=== PATIENT | male | born 1950 | race Caucasian/White ===

== ENCOUNTER 2023-06-24 09:03 | Inpatient (IN) ==
[2023-06-24] MEDS ORDERED: Senna TAB 8.6 mg TAB PO PRN (15:08)
[2023-06-24] MEDS ORDERED: Magnesium Hydroxide LIQ 30 ML UDC PO PRN (15:08)
[2023-06-24] MEDS: Heparin 5000 UNITS/ML 1 mL VIAL SUBCUT SCH (22:34)
[2023-06-25] MEDS: Ondansetron ODT 4 mg TAB 4 MG TAB PO PRN (05:44)
[2023-06-25] MEDS: Aspirin EC 81 mg TAB.EC (enteric coated) PO SCH (10:40)
[2023-06-26 07:29] LABS: ABS Basophils 0.1 10^3/uL (0.0-0.1); ABS Eosinophils 0.1 10^3/uL (0.0-0.5); ABS Lymphocytes 2.3 10^3/uL (1.0-4.8); ABS Neutrophils 6.8 10^3/uL (1.5-7.6); ABS Nucleated RBC 0.01 10^3/ul; Eosinophil % 1.3 %; Hematocrit 39.9 % (38-53); Hemoglobin 13.8 g/dL (13.2-16.3); Lymphocyte % 22.4 %; Mean Corpuscular Hemoglobin 30.1 pg (27-33); Mean Corpuscular Hgb Conc 34.5 g/dL (31-36); Mean Corpuscular Volume 87.3 fL (80-97); Mean Platelet Volume 8.7 fL (7.5-11.2); Platelet Count 327 10^3/uL (150-450); Red Blood Count 4.57 10^6/uL (4.06-5.63); Red Cell Distribution Width 13.9 % (12-17); White Blood Count 10.3 10^3/uL (3.6-10.2)
[2023-06-26 08:01] LABS: Albumin 3.8 g/dL (3.2-5.2); Albumin/Globulin Ratio 1.7 (1-3); Calcium 9.1 mg/dL (8.6-10.3); Creatinine, Serum 0.81 mg/dL (0.67-1.17); Globulin 2.2 g/dL (2-4); Potassium 4.8 mmol/L (3.5-5.0); Total Bilirubin 1.1 mg/dL (0.2-1.0); eGFR CKD-EPI 92.5 (>60)
[2023-06-27 05:56] VITALS: BP 161/70
== END 2023-06-27 08:55 | disposition short-term general hospital (02) | DRG 64 ==
LOC: PMRU 11:59
PROVIDERS: ADMIT Physical Medicine & Rehabilitation; ATTEND Physical Medicine & Rehabilitation